=== PATIENT | male | born 1985 | race Caucasian/White ===

== ENCOUNTER 2021-07-01 19:04 | Emergency (ER) | payer OTHER ==
[2021-07-01] MEDS ORDERED: BACTRIM DS TAB1 EACH PO (22:37)
[2021-07-01] MEDS ORDERED: CEPHALEXIN500 MG PO (22:37)
== END 2021-07-01 22:44 | disposition home or self-care (01) ==
LOC: ER1 19:04
DX: L72.0 Epidermal cyst (principal)
CPT/HCPCS: 99282